=== PATIENT | male | born 2000 | race Two or more races ===

== ENCOUNTER 2019-02-23 07:15 | Outpatient (CLI) | payer OTHER ==
[~2019-02-23] VITALS: Ht 152.4 cm; Wt 95.3 kg
== END 2019-02-23 15:30 | disposition home or self-care (01) ==
LOC: OFIC 805 07:15
DX: J31.0 Chronic rhinitis (principal); J31.2 Chronic pharyngitis; G47.33 Obstructive sleep apnea (adult) (pediatric); H90.3 Sensorineural hearing loss, bilateral; R06.83 Snoring